=== PATIENT | female | born 1960 | race Caucasian/White ===

== ENCOUNTER → 2016-12-01 | Outpatient (CLI) | payer BC ==
--- NOTE | 2016-12-01 13:25 | DI ---
History: Bilateral thoracic back pain Comparison: None Findings: No scoliosis. Mild exaggeration of kyphotic curvature. Minimal scattered osteophyte formation. Less than 20% anterior wedging of T11 which could represent a compression fracture of indeterminate a ge. No congenital vertebral body anomalies Note is made of the presence of median sternotomy wires, and note is made that the patient is status post cardiac valve replacement Impression Lessen 20% anterior wedging of T11 which could represent compression fracture of indeterminate age. I f further evaluation is clinically indicated, MRI of the thoracic spine with STIR images could be per formed. Mild exaggeration of kyphotic curvature
--- NOTE | 2016-12-01 13:27 | DI ---
History: Bilateral thoracic spine pain Comparison: None Findings: Small endplate osteophyte formation at the level of L5. Loss of intervertebral disc space height at the level of L5-S1 No compression fracture No spondylolisthesis SI joints unremarkable Impression: Intervertebral disc space narrowing at L5-S1.
== END ==
LOC: RAD 12:07
PROVIDERS: ATTEND Family Medicine
DX: M54.6 Pain in thoracic spine (principal); M54.5 Low back pain; M48.07 Spinal stenosis, lumbosacral region
CPT/HCPCS: 72072; 72100